=== PATIENT | male | born 1980 | race Caucasian/White ===

== ENCOUNTER 2022-06-05 10:51 | Outpatient (CLI) | payer BC | END 2022-06-05 10:52 | disposition home or self-care (01) | LOC: BICRAD 10:51 | PROVIDERS: ATTEND Chiropractor | DX: M99.01 Segmental and somatic dysfunction of cervical region (principal); M54.2 Cervicalgia; M99.02 Segmental and somatic dysfunction of thoracic region; M62.830 Muscle spasm of back | CPT/HCPCS: 72040 ==